=== PATIENT | male | born 1965 | race African-American/Black ===

== ENCOUNTER → 2021-12-13 | Outpatient (CLI) | payer BC ==
[2021-12-13 09:21] LABS: BASOPHILS % 0.7 % (0.0-2.0); EOSINOPHILS % 4.4 % (0.0-5.0); HEMATOCRIT. 43.9 % (42.0-52.0); HEMOGLOBIN. 14.8 g/dL (14.0-18.0); LYMPHOCYTES % 37.1 % (20.0-50.0); MEAN CORPUSCULAR HEMOGLOBIN 28.6 pg (28.0-32.0); MEAN CORPUSCULAR VOLUME 84.8 fL (80.0-94.0); MEAN PLATELET VOLUME 8.2 fl (7.4-10.4); MONOCYTES % 10.1 % (2.0-8.0); NEUTROPHILS % 47.7 % (40.0-76.0); PLATELET 266 x1000/uL (130-400); RED BLOOD CELL COUNT 5.18 mill/uL (4.7-6.1); RED CELL DISTRIBUTION WIDTH 13.7 % (11.6-14.6)
[2021-12-13 09:28] LABS: CHLORIDE 109 mEq/L (98-107)
[2021-12-13 09:43] LABS: HDL CHOLESTEROL 53 mg/dL (40-59); LDL CHOLESTEROL 118 mg/dL (5-100); TOTAL IRON BINDING CAPACITY 360 ug/dL (250-450)
[2021-12-13 13:35] LABS: PROSTRATE SPECIFIC AG TOTAL 1.19 ng/mL (0.0-4.0)
[2021-12-13 13:47] LABS: HEPATITIS B SURFACE ANTIGEN NEGATIVE
[2021-12-13 16:51] LABS: VITAMIN B12 SERUM 1359 pg/mL (211-911)
[2021-12-14 05:09] LABS: VITAMIN D 25-OH 44.5 ng/mL (30.0-100.0)
== END | disposition home or self-care (01) ==
LOC: EDSEX → LAB 08:03
PROVIDERS: ATTEND Internal Medicine Geriatric Medicine
DX: Z00.01 Encounter for general adult medical examination with abnormal findings (principal); N39.0 Urinary tract infection, site not specified; Z11.59 Encounter for screening for other viral diseases; I10 Essential (primary) hypertension; R73.09 Other abnormal glucose; E78.1 Pure hyperglyceridemia; E55.9 Vitamin D deficiency, unspecified; E66.01 Morbid (severe) obesity due to excess calories; M15.0 Primary generalized (osteo)arthritis; E78.5 Hyperlipidemia, unspecified
CPT/HCPCS: 36415; 80053; 80061; 82306; 82607; 82746; 83036; 83540; 83550; 83735; 84153; 84403; 84443; 85025; 85651; 86592; 86705; 86709; 86803; 87340; G0103

== ENCOUNTER → 2021-12-13 | Outpatient (CLI) | payer BC | END | disposition home or self-care (01) | LOC: RAD 08:12 → EDSEX 08:12 | DX: M17.11 Unilateral primary osteoarthritis, right knee (principal); M25.761 Osteophyte, right knee; Z96.652 Presence of left artificial knee joint | CPT/HCPCS: 73560 ==